=== PATIENT | female | born 1970 | race Caucasian/White ===

== ENCOUNTER 2019-10-05 10:30 | Emergency (ER) | payer BC, SELFPAY ==
[~2019-10-05] VITALS: Ht 172.7 cm; Wt 94.3 kg
[2019-10-05 10:30] VITALS: BP_SYST 154
[~2019-10-05 10:30] MED LIST: GLU500 PO; LEVO500T20 PO
[2019-10-05] MEDS ORDERED: LORazepam 1 MG TABLET PO ONE (11:30)
[2019-10-05 11:56] VITALS: BP_SYST 147
== END 2019-10-05 12:05 | disposition home or self-care (01) ==
LOC: SED 10:30
DX: F41.9 Anxiety disorder, unspecified (principal); K21.9 Gastro-esophageal reflux disease without esophagitis; E11.9 Type 2 diabetes mellitus without complications; Z88.8 Allergy status to other drugs, medicaments and biological substances
CPT/HCPCS: 93005; 99283

== ENCOUNTER 2023-08-17 10:15 | Inpatient (IN) | payer BC ==
[~2023-08-17] VITALS: Ht 172.7 cm; Wt 86.2 kg
[2023-08-17 10:28] VITALS: BP_SYST 140; PULSE 73; RESP 20; TEMP 97.1; O2SAT 99
[2023-08-17] MEDS: KETOROLAC TROMETHAMINE 30 MG VIAL IM ONE (10:55)
[2023-08-17] MEDS: ASPIRIN 81 MG TAB.CHEW PO ONE (11:03)
[2023-08-17] MEDS: IPRATROPIUM/ALBUTEROL SULFATE 3 ML AMPUL.NEB (DUONEB) INH ONE (11:03)
[2023-08-17 11:14] LABS: BASOPHILS % (AUTO) 0.6 % (0.0-2.0); EOSINOPHILS # (AUTO) 0.3 K/uL (0.0-0.4); HEMATOCRIT 41.3 % (36-48); HEMOGLOBIN 13.6 g/dL (12.0-16.0); LYMPHOCYTES # (AUTO) 1.4 K/uL (1.0-5.5); LYMPHOCYTES % (AUTO) 17.4 % (20.5-51.5); MEAN CORPUSCULAR HEMOGLOBIN 29 pg (27-31); MEAN CORPUSCULAR HGB CONC 33 % (32-36); MEAN CORPUSCULAR VOLUME 88 fL (79.0-98.0); MONOCYTES # (AUTO) 0.3 K/uL (0.0-1.0); MONOCYTES % (AUTO) 4.3 % (1.7-9.3); NEUTROPHILS # (AUTO) 5.8 K/uL (1.8-7.7); NEUTROPHILS % (AUTO) 73.7 % (40.0-70.0); PLATELET COUNT (AUTO) 238 K/uL (130-430); RED CELL DISTRIBUTION WIDTH 15.2 % (9.0-15.0); WHITE BLOOD COUNT (AUTO) 7.9 K/uL (4.8-10.8)
[2023-08-17 11:23] LABS: ANION GAP 12 (5-15); CARBON DIOXIDE 25 mmol/L (23-29); CHLORIDE 103 mmol/L (98-107); CREATININE 0.72 mg/dL (0.55-1.30); GFR AFRICAN AMERICAN 109 mL/min (>90); GLUCOSE 109 mg/dL (74-106); POTASSIUM 3.7 mmol/L (3.5-5.1); SODIUM SERUM 140 mmol/L (136-145); UREA NITROGEN, BLOOD 15 mg/dL (8-21)
[2023-08-17 11:28] LABS: GFR NON AFRICAN-AMERICAN 90 mL/min (>90)
[2023-08-17] MEDS: traMADol HCL HCL 50 MG TABLET (ULTRAM) PO ONE (11:46)
[2023-08-17] MEDS: ONDANSETRON HCL 4 MG/2 ML VIAL IVP ONE (12:11)
[2023-08-17] MEDS: MORPHINE 4 MG INJ. 4 MG/ML VIAL IVP ONE (12:11)
[2023-08-17] MEDS ORDERED: METF750T46 PO (12:44)
[2023-08-17] MEDS ORDERED: LIP20 PO (12:44)
[2023-08-17] MEDS ORDERED: NITROGLYCERIN 0.4 MG TAB.SUBL SL PRN (12:45)
[2023-08-17] MEDS ORDERED: GLUCOSE (DEXTROSE) ORAL GEL -Adults PO PRN (12:45)
[2023-08-17] MEDS ORDERED: MORPHINE 2 MG/ML INJ. SYRINGE IVP PRN (12:45)
[2023-08-17] MEDS ORDERED: DEXTROSE 50% JECT 50 ML DISP.SYRIN IVP PRN (12:45)
[2023-08-17] MEDS ORDERED: ONDANSETRON HCL 4 MG/2 ML VIAL IVP PRN (12:45)
[2023-08-17] MEDS ORDERED: HYDROcodone/ACETAMIN 10-325 MG TAB PO PRN (12:45)
[2023-08-17] MEDS ORDERED: ACETAMINOPHEN 325 MG TABLET PO PRN (12:45)
[2023-08-17] MEDS: ATORVASTATIN 20 MG TABLET PO ONE (14:52)
[2023-08-17] MEDS: ALBUTEROL SULFATE 0.083% 2.5 MG/3 ML VIAL.NEB INH PRN (16:39)
[2023-08-17 16:51] VITALS: BP_SYST 135; PULSE 77; O2SAT 98
[2023-08-17 16:52] VITALS: PULSE 77; O2SAT 98
[2023-08-17] MEDS: PANTOPRAZOLE SODIUM 40 MG/VIAL (PROTONIX) IVP ONE (17:11)
[2023-08-17] MEDS: INSULIN REGULAR, HUMAN 100 UNITS/ML, 3 ML VIAL (humuLIN R) SUBCUT PRN (17:14)
[2023-08-17] MEDS: HYDROcodone/ACETAMIN 5-325 MG TAB (NORCO/ VICODIN) PO PRN (19:57)
[2023-08-17 20:00] VITALS: BP_SYST 120; PULSE 101; RESP 18; TEMP 98.5; O2SAT 94
[2023-08-18] VITALS: BP_SYST 115; PULSE 82; RESP 18; TEMP 97.9; O2SAT 96
[2023-08-18 05:49] LABS: BASOPHILS % (AUTO) 0.1 % (0.0-2.0); EOSINOPHILS # (AUTO) 0.1 K/uL (0.0-0.4); EOSINOPHILS % (AUTO) 0.3 % (0.0-4.0); HEMATOCRIT 39.3 % (36-48); LYMPHOCYTES # (AUTO) 1.6 K/uL (1.0-5.5); LYMPHOCYTES % (AUTO) 10.5 % (20.5-51.5); MEAN CORPUSCULAR HEMOGLOBIN 29 pg (27-31); MEAN CORPUSCULAR HGB CONC 33 % (32-36); MEAN CORPUSCULAR VOLUME 87 fL (79.0-98.0); MONOCYTES # (AUTO) 0.9 K/uL (0.0-1.0); MONOCYTES % (AUTO) 6.2 % (1.7-9.3); NEUTROPHILS # (AUTO) 12.5 K/uL (1.8-7.7); NEUTROPHILS % (AUTO) 82.9 % (40.0-70.0); PLATELET COUNT (AUTO) 248 K/uL (130-430); RED CELL DISTRIBUTION WIDTH 14.8 % (9.0-15.0); WHITE BLOOD COUNT (AUTO) 15.1 K/uL (4.8-10.8)
[2023-08-18 06:35] LABS: ALANINE AMINOTRANSFERASE 28 U/L (12-78); ALBUMIN 3.2 g/dL (3.4-4.8); ANION GAP 8 (5-15); ASPARTATE AMINOTRANSFERASE 13 U/L (10-37); CALCIUM 8.7 mg/dL (8.4-11.0); CARBON DIOXIDE 28 mmol/L (23-29); CHLORIDE 103 mmol/L (98-107); CREATININE 0.72 mg/dL (0.55-1.30); GFR AFRICAN AMERICAN 109 mL/min (>90); GFR NON AFRICAN-AMERICAN 90 mL/min (>90); GLUCOSE 105 mg/dL (74-106); POTASSIUM 3.8 mmol/L (3.5-5.1); SODIUM SERUM 139 mmol/L (136-145); TOTAL BILIRUBIN 0.8 mg/dL (0.0-1.0); TOTAL PROTEIN, SERUM 7.1 g/dL (6.4-8.3); UREA NITROGEN, BLOOD 17 mg/dL (8-21)
[2023-08-18 07:37] VITALS: BP_SYST 131; PULSE 73; RESP 18; TEMP 97.7; O2SAT 95
[2023-08-18] MEDS: ATORVASTATIN 20 MG TABLET PO SCH (08:14)
[2023-08-18] MEDS: ASPIRIN 81 MG TAB.CHEW PO SCH (08:14)
[2023-08-18] MEDS: CYCLOBENZAPRINE HCL 10 MG TABLET (FLEXERIL) PO SCH (08:15)
[2023-08-18] MEDS: PANTOPRAZOLE SODIUM 40 MG/VIAL (PROTONIX) IVP SCH (08:17)
[2023-08-18] MEDS: NAPROXEN 250 MG TABLET PO SCH (08:17)
[2023-08-18] MEDS: METHYL SALICYLATE/MENTH/CAMPH 57 GM CREAM..G. TP SCH (09:00)
[2023-08-18 11:48] VITALS: BP_SYST 118; BP_SYST 134; PULSE 78; RESP 16; RESP 17; TEMP 98.1; O2SAT 96; O2SAT 98
[2023-08-18] MEDS ORDERED: PHENYLEPHRINE HCL 0.25% NASAL 15 ML NASPR NS PRN (15:45)
[2023-08-18 16:39] LABS: BILIRUBIN,URINE NEGATIVE (NEGATIVE); BLOOD, URINE NEGATIVE (NEGATIVE); CLARITY/URINE SL CLOUDY (CLEAR); COLOR,URINE YELLOW (YELLOW); GLUCOSE,URINE NEGATIVE (NEGATIVE); KETONES,URINE NEGATIVE (NEGATIVE); LEUKOCYTE ESTERASE ,URINE 1+ (NEGATIVE); NITRITE, URINE NEGATIVE (NEGATIVE); PH,URINE 7.5 (5.0-8.0); PROTEIN URINE NEGATIVE (NEGATIVE); UROBILINOGEN,URINE 0.2 (0.2-1.0)
[2023-08-18 16:48] LABS: COVID19 ANTIGEN SOFIA FIA NEGATIVE (NEGATIVE)
[2023-08-18 16:49] LABS: INFLUENZA TYPE A Negative (NEGATIVE); INFLUENZA TYPE B NEGATIVE (NEGATIVE)
[2023-08-18 16:52] LABS: BACTERIA,URINE FEW /HPF (None Seen); RBC,URINE NONE SEEN /HPF (0-3)
[2023-08-18 16:53] LABS: MUCUS,URINE None Seen /LPF (None Seen); URINE AMORPHOUS PHOSPHATES 3+ /HPF (None Seen)
[2023-08-18 21:00] VITALS: BP_SYST 131; PULSE 78; RESP 20; TEMP 98.4; O2SAT 95
[2023-08-18 21:30] VITALS: BP_SYST 125; PULSE 74; RESP 20; TEMP 98.8; O2SAT 97; O2SAT 98
[2023-08-19] MEDS: cefTRIAXone 1 GM IVPB PREMIX 50 ML IV ONE (00:08)
[2023-08-19] MEDS: cefTRIAXone 1 GM in D5W 50 ML IV SCH (00:14)
[2023-08-19 00:30] VITALS: BP_SYST 131; PULSE 78; RESP 20; TEMP 99; O2SAT 97
[2023-08-19 05:36] LABS: BASOPHILS # (AUTO) 0.1 K/uL (0.0-0.2); BASOPHILS % (AUTO) 0.6 % (0.0-2.0); EOSINOPHILS # (AUTO) 0.4 K/uL (0.0-0.4); EOSINOPHILS % (AUTO) 4.1 % (0.0-4.0); HEMATOCRIT 39.1 % (36-48); HEMOGLOBIN 13.2 g/dL (12.0-16.0); LYMPHOCYTES # (AUTO) 2.5 K/uL (1.0-5.5); LYMPHOCYTES % (AUTO) 25.6 % (20.5-51.5); MEAN CORPUSCULAR HEMOGLOBIN 29 pg (27-31); MEAN CORPUSCULAR HGB CONC 34 % (32-36); MEAN CORPUSCULAR VOLUME 87 fL (79.0-98.0); MONOCYTES # (AUTO) 0.6 K/uL (0.0-1.0); MONOCYTES % (AUTO) 6.5 % (1.7-9.3); NEUTROPHILS # (AUTO) 6.1 K/uL (1.8-7.7); NEUTROPHILS % (AUTO) 63.2 % (40.0-70.0); PLATELET COUNT (AUTO) 230 K/uL (130-430); RED BLOOD CELL COUNT(AUTO) 4.49 MIL/uL (4.2-6.2); RED CELL DISTRIBUTION WIDTH 14.7 % (9.0-15.0); WHITE BLOOD COUNT (AUTO) 9.6 K/uL (4.8-10.8)
[2023-08-19 06:13] LABS: ALBUMIN 3.1 g/dL (3.4-4.8); CALCIUM 8.5 mg/dL (8.4-11.0); CREATININE 0.8 mg/dL (0.55-1.30); POTASSIUM 4.1 mmol/L (3.5-5.1); TOTAL BILIRUBIN 0.6 mg/dL (0.0-1.0); TOTAL PROTEIN, SERUM 6.7 g/dL (6.4-8.3)
[2023-08-19 07:20] VITALS: O2SAT 99
[2023-08-19 08:05] VITALS: BP_SYST 132; PULSE 78; RESP 18; TEMP 97.8; O2SAT 96
[2023-08-19 12:38] VITALS: BP_SYST 118; PULSE 74; RESP 18; TEMP 98.8; O2SAT 98
[2023-08-19] MEDS ORDERED: CEPH750C7 PO (14:09)
[2023-08-19] MEDS ORDERED: NAPR-686 PO (14:09)
[2023-08-19] MEDS ORDERED: CYCL10TA25 PO (14:09)
[2023-08-19] MEDS ORDERED: PRO40 PO (14:09)
[2023-08-19 16:37] VITALS: BP_SYST 137; PULSE 75; RESP 16; TEMP 97.6; O2SAT 98
== END 2023-08-19 20:06 | disposition home or self-care (01) | DRG 206 ==
LOC: SED 10:15 → STU 12:42
PROVIDERS: ADMIT Family Medicine; ATTEND Family Medicine
DX: M94.0 Chondrocostal junction syndrome [Tietze] (principal); N39.0 Urinary tract infection, site not specified; K21.9 Gastro-esophageal reflux disease without esophagitis; I10 Essential (primary) hypertension; Z20.822 Contact with and (suspected) exposure to COVID-19; F41.9 Anxiety disorder, unspecified; E11.9 Type 2 diabetes mellitus without complications; J44.89 Other specified chronic obstructive pulmonary disease; Z79.899 Other long term (current) drug therapy; Z86.73 Personal history of transient ischemic attack (TIA), and cerebral infarction without residual deficits; Z95.0 Presence of cardiac pacemaker; Z79.84 Long term (current) use of oral hypoglycemic drugs
CPT/HCPCS: 36415; 71045; 72072; 80048; 80053; 81000; 81001; 81015; 82948; 83037; 83880; 84443; 84484; 85025; 85379; 87040; 87086; 93005; 93306; 94760; 96372; 96374; 99285; C9113; G0378; J0696; J1815; J1885; J2270; J2405; J7060